=== PATIENT | female | born 1980 | race Two or more races ===

== ENCOUNTER 2016-09-02 02:47 | Emergency (ER) | payer MEDICAID ==
[~2016-09-02] VITALS: Ht 152.4 cm; Wt 70.8 kg
[2016-09-02] MEDS ORDERED: NKM (02:56)
[2016-09-02 03:07] VITALS: BP 134/84
--- NOTE | 2016-09-02 03:09 | Emergency Room Report ---
History of Present Illness General Chief Complaint: Toothache Source: Patient Present Illness HPI Is a 36-year-old female who had 2 recent root canal done. She was doing well until tonight. She was eating and bit down on something and felt pain to the right lower jaw. Got better with ibuprofen but since then been throbbing in nature. Unable to sleep because of the pain. No fever chills but no nausea no vomiting. No other complaint. No swelling. Allergies: Coded Allergies: No Known Allergies (Unverified , 09/02/16) Patient History Past Medical History: see triage record, old chart reviewed Past Surgical History: none Pertinent Family History: none Social History: Denies: smoking Last Menstrual Period: July Now: No Immunizations: other Reviewed Nursing Documentation: PMH: Agreed, PSxH: Agreed Nursing Documentation-PM Past Medical History: No Stated History Review of Systems Eye: Denies: blurred vision, eye pain ENT: Denies: ear pain, nose congestion, throat swelling Respiratory: Denies: cough, shortness of breath Cardiovascular: Denies: chest pain, palpitations Gastrointestinal: Denies: abdominal pain, diarrhea, nausea, vomiting Musculoskeletal: Denies: back pain, joint pain Skin: Denies: rash Neurological: Denies: headache, numbness Endocrine: Denies: increased thirst, increased urine Hematologic/Lymphatic: Denies: easy bruising All Other Systems: negative except mentioned in HPI Physical Exam Vital Signs Date Time Temp Pulse Resp B/P Pulse Ox O2 Delivery O2 Flow Rate FiO2 09/02/16 02:49 98.1 53 16 150/94 100 Room Air vitals with hypertension Sp02 EP Interpretation: reviewed, normal General Appearance: well appearing, no apparent distress, alert Head: normocephalic, atraumatic Eyes: bilateral eye EOMI, bilateral eye PERRL ENT: hearing grossly normal, normal pharynx, other - Patient has percussive tenderness over the right lower second molar. No abscess. Neck: full range of motion, supple, no meningismus Respiratory: chest non-tender, lungs clear, normal breath sounds Cardiovascular #1: regular rate, rhythm, no murmur Gastrointestinal: normal bowel sounds, non tender, no mass, no organomegaly, no bruit, non-distended Musculoskeletal: back normal, gait/station normal, normal range of motion Psychiatric: mood/affect normal Skin: warm/dry Procedures Additional Procedure Procedure Narrative Procedure: Dental block Indication: Dental pain Description: I injected 2 mL of 1% lidocaine with epinephrine into the right inferior alveolar ridge. She had good pain relief. No complication. Patient tolerated procedure without a problem. Medical Decision Making Diagnostic Impression: Primary Impression: Toothache ER Course Patient with dental pain. I suspect that he may still be a partial nerve root still left. She said she will go see the dentist in the morning. No abscess to be I&D. Last Vital Signs Date Time Temp Pulse Resp B/P Pulse Ox O2 Delivery O2 Flow Rate FiO2 09/02/16 02:49 98.1 53 16 150/94 100 Room Air Status: improved Disposition: HOME, SELF-CARE Condition: Stable Patient Instructions: Dental Pain Additional Instructions: Followup with your dentist in the morning. Return if worse. BHUPINDER FAULKNER M.D. Sep 02, 2016 03:09
[2016-09-02 03:13] VITALS: BP 134/84
[2016-09-03] MEDS ORDERED: NUVARING VAGIN1 EAC1 VG (04:20)
[2016-09-03] MEDS ORDERED: AMOXICILLIN500 MG ORAL (04:36)
[2016-09-03] MEDS ORDERED: HYDROCODON-ACE1 EA15 ORAL (04:36)
[2016-09-03] MEDS ORDERED: IBUPROFEN600 MG ORAL (04:36)
== END 2016-09-02 03:13 | disposition home or self-care (01) ==
LOC: EMR 03:00
DX: K08.89 Other specified disorders of teeth and supporting structures (principal)
CPT/HCPCS: 64400; 99284; Z7502

== ENCOUNTER 2016-09-03 04:05 | Emergency (ER) | payer MEDICAID ==
[~2016-09-03] VITALS: Ht 152.4 cm; Wt 70.8 kg
[~2016-09-03 04:05] MED LIST: NKM
[2016-09-03] MEDS ORDERED: NUVARING VAGIN1 EAC1 VG (04:20)
[2016-09-03] MEDS ORDERED: IBUPROFEN600 MG ORAL (04:36)
[2016-09-03] MEDS ORDERED: AMOXICILLIN500 MG ORAL (04:36)
[2016-09-03] MEDS ORDERED: HYDROCODON-ACE1 EA15 ORAL (04:36)
--- NOTE | 2016-09-03 04:37 | Emergency Room Report ---
History of Present Illness General Chief Complaint: Toothache Source: Patient Present Illness HPI Is a 36-year-old female who had a recent root canal done. She was doing well until a few days ago which are having pain. I saw her couple days ago. I did a dental block which helped. She was supposed to see her dentist the same day but her dentist is out of town. Her appointment is in 2 days. She's been taking ibuprofen. Now slight swelling to her face. No nausea no vomiting. Better with ibuprofen. Pain is 8/10. Throbbing in nature. Allergies: Coded Allergies: No Known Allergies (Unverified , 09/02/16) Patient History Past Medical History: see triage record, old chart reviewed Past Surgical History: other Pertinent Family History: none Social History: Denies: smoking Last Menstrual Period: 08/18/16 Now: No : 4 Para: 3 Immunizations: other Reviewed Nursing Documentation: PMH: Agreed, PSxH: Agreed Nursing Documentation-PMH Past Medical History: No Stated History Review of Systems Eye: Denies: blurred vision, eye pain ENT: Denies: ear pain, nose congestion, throat swelling Respiratory: Denies: cough, shortness of breath Cardiovascular: Denies: chest pain, palpitations Gastrointestinal: Denies: abdominal pain, diarrhea, nausea, vomiting Musculoskeletal: Denies: back pain, joint pain Skin: Denies: rash Neurological: Denies: headache, numbness Endocrine: Denies: increased thirst, increased urine Hematologic/Lymphatic: Denies: easy bruising All Other Systems: negative except mentioned in HPI Physical Exam Vital Signs Date Time Temp Pulse Resp B/P Pulse Ox O2 Delivery O2 Flow Rate FiO2 09/03/16 04:15 98.2 54 14 127/85 100 Room Air vitals normal Sp02 EP Interpretation: reviewed, normal General Appearance: well appearing, no apparent distress, alert Head: normocephalic, atraumatic Eyes: bilateral eye EOMI, bilateral eye PERRL ENT: hearing grossly normal, normal pharynx, other - Percussive tenderness to the right lower second molar. Slight right facial swelling compared to 2 days ago. Neck: full range of motion, supple, no meningismus Respiratory: chest non-tender, lungs clear, normal breath sounds Cardiovascular #1: regular rate, rhythm, no murmur Gastrointestinal: normal bowel sounds, non tender, no mass, no organomegaly, no bruit, non-distended Musculoskeletal: back normal, gait/station normal, normal range of motion Psychiatric: mood/affect normal Skin: warm/dry Procedures Additional Procedure Procedure Narrative procedure: Dental block Indication: Dental pain Description: I injected 2 mL of 1% lidocaine with epinephrine into the right inferior alveolar ridge. Is good pain relief. No complication. Patient tolerated procedure without a problem. Medical Decision Making Diagnostic Impression: Primary Impression: Toothache Additional Impression: Dental infection ER Course Patient presents with dental pain and mild swelling. Now concerning for possible infection. We'll put on antibiotics. No abscess to I&D. Last Vital Signs Date Time Temp Pulse Resp B/P Pulse Ox O2 Delivery O2 Flow Rate FiO2 09/03/16 04:15 98.2 54 14 127/85 100 Room Air Status: improved Disposition: HOME, SELF-CARE Condition: Stable Scripts Ibuprofen* (MOTRIN*) 600 Mg Tablet 600 MG ORAL THREE TIMES A DAY, #30 TAB 0 Refills Prov: BHUPINDER FAULKNER M.D. 09/03/16 Hydrocodone/Acetaminophen 5-325* (HYDROCODONE/ACETAMINOPHEN 5-325*) 1 Each Tablet 1 TAB ORAL Q6H Y for For Pain, #15 TAB 0 Refills Prov: BHUPINDER FAULKNER M.D. 09/03/16 Amoxicillin* (AMOXIL*) 500 Mg Capsule 500 MG ORAL THREE TIMES A DAY, #21 CAP Prov: BHUPINDER FAULKNER M.D. 09/03/16 Referrals: [facility],REFERR[facility] (PCP) Patient Instructions: Dental Pain Additional Instructions: Followup with dentist as scheduled. Return if worse. BHUPINDER FAULKNER M.D. Sep 03, 2016 04:37
[2016-09-03 04:45] VITALS: BP_SYST 122; BP_SYST 127; BP_DIAS 74; BP_DIAS 85
== END 2016-09-03 04:45 | disposition home or self-care (01) ==
LOC: EMR 04:20
DX: K08.89 Other specified disorders of teeth and supporting structures (principal); K04.7 Periapical abscess without sinus
CPT/HCPCS: 64400; 99284; Z7502